=== PATIENT | male | born 1975 | race African-American/Black ===

== ENCOUNTER 2024-12-17 11:40 | Inpatient (IN) | payer OTHER ==
[2024-12-17 12:15] VITALS: BMI 17.8
[2024-12-17] MEDS ORDERED: BENZONATATE 200 MG CAPSULE PO PRN (14:20)
[2024-12-17] MEDS ORDERED: MAGNESIUM HYDROX 2400MG/30ML ORAL SUSPENSION 30 ML CUP PO PRN (14:20)
[2024-12-17] MEDS ORDERED: NICOTINE POLACRILEX 2 MG GUM BUC PRN (14:20)
[2024-12-17] MEDS ORDERED: POLYETHYLENE GLYCOL (HEALTHYLAX) 3350 17 GM PACKET PO PRN (14:20)
[2024-12-17] MEDS ORDERED: IBUPROFEN 400 MG TABLET (FP) PO PRN (14:20)
[2024-12-17] MEDS ORDERED: MAG HYDROX/AL HYDROX/SIMETH 30 ML UNIT-DOSE CUP PO PRN (14:20)
[2024-12-17] MEDS ORDERED: hydrOXYzine PAMOATE 25 MG CAPSULE (FP) PO PRN (14:20)
[2024-12-17] MEDS ORDERED: ACETAMINOPHEN 325 MG TABLET (FP) PO PRN (14:20)
[2024-12-17] MEDS ORDERED: BENZOCAINE/MENTHOL (CHLORASEPTIC ) LOZENGE MM PRN (14:20)
[2024-12-17] MEDS ORDERED: NALOXONE (NARCAN) HCL 4 MG/0.1 ML SPRAY NS PRN (14:20)
[2024-12-17] MEDS ORDERED: guaiFENesin 600 MG TABLET.ER (FP) PO PRN (14:20)
[2024-12-17] MEDS ORDERED: LOPERAMIDE HCL 2 MG CAPSULE PO PRN (14:20)
[2024-12-17] MEDS: PRENATAL VITAMINS W/ FOLIC ACID TABLET (FP) PO SCH (15:35)
[2024-12-17] MEDS: TUBERCULIN PPD 5 TU/0.1ML SYRINGE (IN PATIENT USE ONLY) ID ONE (17:22)
[2024-12-17] MEDS: THIAMINE 100 MG TABLET PO SCH (22:09)
[2024-12-17] MEDS: MELATONIN 5 MG TABLETS PO SCH (22:09)
[2024-12-18 07:18] VITALS: RESP 16
[2024-12-18] MEDS: valACYclovir HCL 500 MG TABLET (FP) PO SCH (10:27)
[2024-12-18] MEDS: IBUPROFEN 600 MG TABLET (FP) PO PRN (10:28)
[2024-12-18] MEDS: FLU VACC TS2025-26(6MOS UP)/PF 45 MCG/0.5 ML SYRINGE IM ONE (12:00)
[2024-12-18 12:03] LABS: MCHC 30.5 g/dl (32.3-36.5); MEAN CELL VOLUME 85.8 fl (79.0-92.2); MEAN PLT VOLUME 9.4 fl (9.4-12.4); RDW 14.6 % (12.1-15.9)
[2024-12-18 12:20] LABS: GLUCOSE,RANDOM 117.0 mg/dL (74-106)
[2024-12-18 12:21] LABS: TOT PROT 6.8 g/dl (6.4-8.2)
[2024-12-18 12:22] LABS: CO2 27.0 mmol/L (21-32)
[2024-12-18 12:23] LABS: ALK PHOS 113.0 U/L (40-150)
[2024-12-18 12:26] LABS: CREATININE 0.67 mg/dL (0.55-1.3); SGOT/AST 59.0 U/L (5-34); SGPT/ALT 90.0 U/L (0-55)
[2024-12-18 12:55] LABS: SYPHILIS W/ RPR CONF NON-REACTIVE (NONREACTIVE)
[2024-12-18 12:59] LABS: URINE APPEARANCE CLEAR; URINE BILIRUBIN NEGATIVE (NEGATIVE); URINE COLOR YELLOW; URINE GLUCOSE (UA) NEGATIVE (NEGATIVE); URINE KETONE NEGATIVE (NEGATIVE)
[2024-12-18 13:00] LABS: URINE LEUK ESTERASE NEGATIVE (NEGATIVE); URINE NITRITE NEGATIVE (NEGATIVE); URINE PROTEIN NEGATIVE (NEGATIVE); URINE UROBILINOGEN 0.2 mg/dL (0.2-1.0)
[2024-12-18 14:37] LABS: HCV DIAGNOSTIC IN-HOUSE W/RFLX REACTIVE (NONREACTIVE)
[2024-12-20 06:30] VITALS: BP 108/84; PULSE 90; TEMP 97.1
== END 2024-12-20 09:40 | disposition left against medical advice (07) | DRG 770 ==
LOC: YASAS 11:40 → Y3W 15:29
PROVIDERS: ADMIT Allergy & Immunology; ATTEND Psychiatry & Neurology Pain Medicine
PROC: HZ42ZZZ Group Counseling for Substance Abuse Treatment, Cognitive-Behavioral (ICD-10-PCS; principal; 2024-12-17)
DX: F14.20 Cocaine dependence, uncomplicated (principal); F11.10 Opioid abuse, uncomplicated; F10.10 Alcohol abuse, uncomplicated; F12.20 Cannabis dependence, uncomplicated; F31.9 Bipolar disorder, unspecified; I10 Essential (primary) hypertension; A60.00 Herpesviral infection of urogenital system, unspecified; Z59.02 Unsheltered homelessness; F17.210 Nicotine dependence, cigarettes, uncomplicated
CPT/HCPCS: 36415; 80053; 80305; 80307; 81003; 85027; 86780; 86803; 87522; 87811; 90656; 93005; 93010